=== PATIENT | male | born 1995 | race Caucasian/White ===

== ENCOUNTER 2016-07-28 11:08 | Emergency (ER) | payer SELFPAY ==
[2016-07-28] MEDS ORDERED: Diph,Pert(Acell),Tet Vac 0.5 ML SYR IM ONE (12:13)
--- NOTE | 2016-07-28 12:54 | Emergency Department Record ---
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 Onset/Timin -: Minutes(s) Extremity Location: Right: Hand Place: Work Context: Accidental Associated Symptoms: None - Annika Coma Scale Eye Response: (4) Open spontaneously Motor Response: (6) Obeys commands Verbal Response: (5) Oriented [place] Total: 15 - Related Data Home Medications Medication Instructions Recorded Confirmed Last Taken No Home Med [NO HOME MEDS] 07/28/16 07/28/16 Unknown Allergies Allergy/AdvReac Type Severity Reaction Status Date / Time No Known Drug Allergies Allergy Verified 07/28/16 11:17 Travel Screening - Travel/Exposure Within Last 30 Days Have you traveled within the last 30 days?: No - Travel/Exposure Within Last Year Have you traveled outside the [place] in the last year?: No - Additonal Travel Details Have you been exposed to anyone with a communicable illness?: No - Travel Symptoms Symptom Screening: None Review of Systems Reviewed: No additional complaints except as noted below Constitutional: Reports: As per HPI. Denies: Chills, Fever, Malaise, Night sweats, Weakness, Weight change Eyes: Reports: As per HPI. Denies: Eye discharge, Eye pain, Photophobia, Vision change ENT: Reports: As per HPI. Denies: Congestion, Dental pain, Ear pain, Epistaxis , Hearing loss, Throat pain Respiratory: Reports: As per HPI. Denies: Cough, Dyspnea, Hemoptysis, Stridor, Wheezes Cardiovascular: Reports: As per HPI. Denies: Arrhythmia, Chest pain, Dyspnea on exertion, Edema, Murmurs, Orthopnea, Palpitations, Paroxysmal nocturnal dyspnea, Rheumatic Fever, Syncope Endocrine: Reports: As per HPI. Denies: Fatigue, Heat or cold intolerance, Polydipsia, Polyuria Gastrointestinal: Reports: As per HPI. Denies: Abdominal pain, Constipation, Diarrhea, Hematemesis, Hematochezia, Melena, Nausea, Vomiting Genitourinary: Reports: As per HPI. Denies: Dysuria, Frequency, Hematuria, Incontinence, Retention, Testicular pain, Testicular mass, Urgency Musculoskeletal: Reports: As per HPI. Denies: Arthralgia, Back pain, Gout, Joint swelling, Myalgia, Neck pain Skin: Reports: As per HPI. Denies: Bruising, Change in color, Change in hair/ nails, Lesions, Pruritus, Rash Neurological: Reports: As per HPI. Denies: Abnormal gait, Confusion, Headache, Numbness, Paresthesias, Seizure, Tingling, Tremors, Vertigo, Weakness Psychiatric: Reports: As per HPI. Denies: Anxiety, Auditory hallucinations, Depression, Homicidal thoughts, Suicidal thoughts, Visual hallucinations Hematological/Lymphatic: Reports: As per HPI. Denies: Anemia, Blood Clots, Easy bleeding, Easy bruising, Swollen glands Past Medical History - SOCIAL HISTORY Smoking Status: Never smoker Alcohol Use: Occassional Drug Use: Occassional Drug Use Detail:: Marijuana - RESPIRATORY Hx Respiratory Disorders: No - CARDIOVASCULAR Hx Cardio Disorders: No - NEURO Hx Neuro Disorders: No - GI Hx GI Disorders: No - Hx Genitourinary Disorders: No - ENDOCRINE Hx Endocrine Disorders: No - MUSCULOSKELETAL Hx Musculoskeletal Disorders: No - PSYCH Hx Psych Problems: No - HEMATOLOGY/ONCOLOGY Hx Hematology/Oncology Disorders: No Family Medical History Any Significant Family History?: No Physical Exam - General General Appearance: Alert, Oriented x3, Cooperative, Mild distress - Head Head exam: Normal inspection - Eye Eye exam: Normal appearance, PERRL, EOMI Pupils: Normal accommodation - ENT ENT exam: Normal exam, Mucous membranes moist, Normal external ear exam, Normal orophraynx, TM's normal bilaterally Ear exam: Normal external inspection. negative: External canal tenderness Nasal Exam: Normal inspection. negative: Discharge, Sinus tenderness Mouth exam: Normal external inspection, Tongue normal Teeth exam: Normal inspection. negative: Dental caries Throat exam: Normal inspection. negative: Tonsillar erythema, Tonsillar exudate - Neck Neck exam: Normal inspection, Full ROM. negative: Tenderness - Respiratory Respiratory exam: Normal lung sounds bilaterally. negative: Respiratory distress - Cardiovascular Cardiovascular Exam: Regular rate, Normal rhythm, Normal heart sounds - GI/Abdominal GI/Abdominal exam: Soft, Normal bowel sounds. negative: Tenderness - Rectal Rectal exam: Deferred - exam: Deferred - Extremities Extremities exam: Normal inspection, Full ROM, Normal capillary refill, Tenderness Image of Hand: 1 - 1.5cm lac 2 - 2cm lac - Back Back exam: Reports: Normal inspection, Full ROM. Denies: Muscle spasm, Rash noted, Tenderness - Neurological Neurological exam: Alert, CN II-XII intact, Normal gait, Oriented X3 - Psychiatric Psychiatric exam: Normal affect, Normal mood - Skin Skin exam: Dry, Intact, Normal color, Warm Course Vital Signs 07/28/16 11:17 Temperature 98.0 F Pulse Rate [ 85 Pulse Ox Probe] Respiratory 16 Rate Blood Pressure 157/97 [Left Arm] Pulse Ox 99 Disposition Disposition: Discharge Clinical Impression: Laceration of fingers without complication Qualifiers: Encounter type: initial encounter Qualified Code(s): S61.219A - Laceration without foreign body of unspecified finger without damage to nail, initial encounter Disposition: Home, Self-Care Condition: (1) Good Instructions: Laceration (ED), Suture Care (ED) Additional Instructions: follow up with family doctor. return sooner if worse. sutures out in 7 days. Forms: Patient Portal Access Laceration - Other - Time Out Informed consent:: Informed consent obtained Confirmed first & last name, , procedure, correct site?: Yes Start Date:: 07/28/16 Start Time:: 12:25 - Location Location of laceration:: Right Laceration located on:: Finger Laceration digit detail:: 2nd Length of laceration:: 1.5 Length of laceration:: cm - Clean and Prep Laceration cleaning method:: Cleansed Laceration cleaning agent:: Normal Saline - Local Anesthetic Lidocaine used:: 1% Lidocaine dose:: 1 mL EMLA cream used?: No - Medication Medicated for procedure?: No - Procedural Detail Tissue detail:: None Foreign body in the wound?: No Undermining was preformed?: No Stent applied?: No [place] applied?: No Skin suture pattern:: Interrupted Suture material/size:: 5-0: Prolene Number of skin sutures:: 3 Neurovascular intact?: Yes - Post Procedural Detail Complications:: Yes Procedure Tolerated by Patient:: Well Laceration - Other - Time Out Informed consent:: Informed consent obtained Confirmed first & last name, , procedure, correct site?: Yes Start Date:: 07/28/16 Start Time:: 12:40 - Location Location of laceration:: Right Laceration located on:: Finger Laceration digit detail:: 3rd Length of laceration:: 2 Length of laceration:: cm - Clean and Prep Laceration cleaning method:: Cleansed Laceration cleaning agent:: Normal Saline - Local Anesthetic Lidocaine used:: 1% Lidocaine dose:: 1 mL EMLA cream used?: No - Medication Medicated for procedure?: No - Procedural Detail Tissue detail:: None Foreign body in the wound?: No Undermining was preformed?: No Stent applied?: No [place] applied?: No Suture material/size:: 5-0: Prolene Number of skin sutures:: 4 Sub Q suture pattern:: Interrupted Neurovascular intact?: Yes - Post Procedural Detail Complications:: No Procedure Tolerated by Patient:: Well
== END 2016-07-28 13:19 | disposition home or self-care (01) ==
LOC: ER 11:08
DX: S61.212A Laceration without foreign body of right middle finger without damage to nail, initial encounter (principal); S61.214A Laceration without foreign body of right ring finger without damage to nail, initial encounter; W45.8XXA Other foreign body or object entering through skin, initial encounter; Y92.414 Local residential or business street as the place of occurrence of the external cause; Y99.0 Civilian activity done for income or pay
CPT/HCPCS: 12002; 90715; 96372; 99283

== ENCOUNTER 2016-08-07 13:31 | Emergency (ER) | payer OTHER ==
--- NOTE | 2016-08-07 13:44 | Emergency Department Record ---
History of Present Illness - General Chief Complaint: Suture removal Stated Complaint: STITCHES REMOVED Time Seen by Provider: 08/07/16 13:37 Source: Patient Mode of arrival: Ambulatory Limitations: No limitations - History of Present Illness Initial Comments: The patient is here due to needing sutures removed. He denies any problems. Complaint: Suture/staple removal Onset/Timin -: Week(s) Initial Visit For: Laceration Returns Today for: Staple/stitch removal Symptoms Since Prior Visit: No new symptoms Associated Symptoms: None - Related Data Home Medications Medication Instructions Recorded Confirmed Last Taken No Home Med [NO HOME MEDS] 07/28/16 07/28/16 Unknown Allergies Allergy/AdvReac Type Severity Reaction Status Date / Time No Known Drug Allergies Allergy Verified 07/28/16 11:17 Travel Screening - Travel/Exposure Within Last 30 Days Have you traveled within the last 30 days?: No Past Medical History - SOCIAL HISTORY Smoking Status: Never smoker Alcohol Use: None Drug Use: None - RESPIRATORY Hx Respiratory Disorders: No - CARDIOVASCULAR Hx Cardio Disorders: No - NEURO Hx Neuro Disorders: No - GI Hx GI Disorders: No - Hx Genitourinary Disorders: No - ENDOCRINE Hx Endocrine Disorders: No - MUSCULOSKELETAL Hx Musculoskeletal Disorders: No - PSYCH Hx Psych Problems: No - HEMATOLOGY/ONCOLOGY Hx Hematology/Oncology Disorders: No Family Medical History Any Significant Family History?: No Physical Exam - General General Appearance: Alert, Oriented x3, Cooperative, No acute distress - Extremities Extremities exam: negative: Normal inspection (The finger sutures were removed with no problems.) Course Vital Signs 08/07/16 13:35 Temperature 98.2 F Pulse Rate 91 H Respiratory 18 Rate Blood Pressure 149/93 Pulse Ox 98 Disposition Disposition: Discharge Clinical Impression: Visit for suture removal Disposition: Home, Self-Care Condition: (1) Good Instructions: Suture Removal (ED) Additional Instructions: Return to the ER for any problems. Forms: Patient Portal Access Time of Disposition: 13:44
== END 2016-08-07 13:49 | disposition home or self-care (01) ==
LOC: ER 13:31
DX: Z48.02 Encounter for removal of sutures (principal)